=== PATIENT | male | born 1990 | race Caucasian/White ===

== ENCOUNTER → 2018-04-05 | Outpatient (CLI) | payer OTHER ==
--- NOTE | 2018-04-05 14:15 | XR ---
Lumbar spine HISTORY: S 33.5XXA, S30.00XXA 3 views of the lumbar spine. Correlation prior exam 01/08/2015 Lumbar vertebral bodies show stable height, alignment, and bone mineralization. Disc spaces reduced a t L5-S1 with associated spondylosis. Recommend 3 rib seen on the left at L1. Spina bifida occulta at S1. Bilateral spondylolysis is suspected at L5. Minimal retrolisthesis grade 1 L4-5, anterolisthesis grade 1 L5-S1 as on prior. IMPRESSION: Degenerative disc disease. Spondylolysis L5.
--- NOTE | 2018-04-05 14:26 | XR ---
AP pelvis HISTORY: Trauma, right hip pain Single frontal view of the pelvis Bone mineralization, joint spaces and alignment are maintained. IMPRESSION: No fracture or dislocation.
[2018-04-05 15:47] LABS: Appearance,Urine Clear (Clear); Bilirubin,Urine Negative (Negative); Blood,Urine Negative (Negative); Color,Urine Yellow; Glucose,Urine (UA) Negative (Negative); Ketones,Urine Negative (Negative); Leukocyte Esterase,Urine Trace (Negative); Mucus,Urine Rare /hpf; Nitrite,Urine Negative (Negative); Protein,Urine Trace (Negative); RBC,Urine 9 /hpf (0-5); Specific Gravity,Urine 1.025 (1.001-1.035); WBC,Urine 15 /hpf (0-5)
== END | disposition home or self-care (01) ==
LOC: RADXRMAIN 12:58
PROVIDERS: ATTEND Emergency Medicine
DX: M51.36 Other intervertebral disc degeneration, lumbar region (principal); M43.16 Spondylolisthesis, lumbar region; S30.0XXA Contusion of lower back and pelvis, initial encounter
CPT/HCPCS: 72100; 72170; 81001